=== PATIENT | male | born 1945 | race Native Hawaiian/Other Pacific Islander ===

== ENCOUNTER 2018-04-11 10:26 | Outpatient (CLI) | payer OTHER | END 2018-04-11 10:27 | disposition short-term general hospital (02) | LOC: AMB 10:26 | DX: R10.84 Generalized abdominal pain (principal); M25.561 Pain in right knee; S50.01XA Contusion of right elbow, initial encounter; V59.3XXA Occupant (driver) (passenger) of pick-up truck or van injured in unspecified nontraffic accident, initial encounter; Y93.89 Activity, other specified; Y92.89 Other specified places as the place of occurrence of the external cause; Y99.8 Other external cause status | CPT/HCPCS: A0425; A0427 ==

== ENCOUNTER 2018-04-11 10:34 | Emergency (ER) | payer OTHER ==
[~2018-04-11] VITALS: Ht 172.7 cm; Wt 113.4 kg
[2018-04-11 10:37] VITALS: TEMP 97.7
[2018-04-11 13:15] VITALS: BP 156/86
== END 2018-04-11 13:15 | disposition home or self-care (01) ==
LOC: ED 10:34
DX: S50.311A Abrasion of right elbow, initial encounter (principal); S50.01XA Contusion of right elbow, initial encounter; V89.0XXA Person injured in unspecified motor-vehicle accident, nontraffic, initial encounter; Y92.89 Other specified places as the place of occurrence of the external cause
CPT/HCPCS: 99282

== ENCOUNTER 2019-10-07 10:02 | Day surgery (SDC) | payer OTHER | END 2019-10-07 14:06 | disposition home or self-care (01) | LOC: OR 10:02 | PROC: 3E0R33Z Introduction of Anti-inflammatory into Spinal Canal, Percutaneous Approach (ICD-10-PCS; principal; 2019-10-07) | PROC: B01BYZZ Fluoroscopy of Spinal Cord using Other Contrast (ICD-10-PCS; 2019-10-07) | DX: M50.123 Cervical disc disorder at C6-C7 level with radiculopathy (principal) | CPT/HCPCS: J1020 ==